=== PATIENT | female | born 1975 | race Caucasian/White ===

== ENCOUNTER 2018-08-13 23:44 | Observation (INO) ==
[2018-08-14] MEDS: NITROGLYCERIN 0.4 MG SL TAB (BOTTLE OF 3) SL PRN ×2 (00:05→00:19)
--- NOTE | 2018-08-14 00:08 | PDOC ---
Chest Pain HPI - General Chief Complaint: Chest Pain Stated Complaint: CHEST PAIN Date Seen by Provider: 08/14/18 Time Seen by Provider: 00:00 Source: Patient Exam Limitations: POSITIVE: No limitations Treatment Prior to Arrival: REPORTS: None Nurse's Notes Reviewed & Considered: Yes - History of Present Illness Initial Comments: The patient is a 43-year-old female who presents to the emergency department with complaints of chest pain. She states that approximately one hour prior to arrival to the ER she was sitting watching TV when she had onset of pain in her left upper chest that radiates to her left shoulder and down her left arm. She has a history of neck problems and initially she thought maybe her neck was aggravated although her current pain does not feel similar to the typical pain s he has associated with her neck. She also describes feeling lightheaded and somewhat short of breath. She also reports having some sweats at home. She states that the pain was more intense at home and has lessened somewhat now that she is here in the emergency department. She still rates her pain however a 5 out of 10. She does not have any known history of heart disease. She has had high blood pressures in the past although she states she does not currently take any medication for blood pressure. She does admit to smoking for 5 cigarettes a day. She does not have any known history of diabetes or hyperlipidemia. She does have family history of heart disease stating that her dad in his 40s from a heart attack. She denies any significant medical history otherwise. She does admit to drinking coffee regularly and she did have some soda earlier tonight. She states that she drank alcohol last night and sometimes puts a shot of hard alcohol in her coffee to help with her neck pain. She admits to smoking marijuana several days ago in [place]. - Patient Home Medications Home Medications: Home Medications oregano oil 1,500 mg capsule 1,500 mg PO PRN 10/10/17 Aspirin [Andres Advanced] 1,000 mg PO PRN 08/13/18 Cetirizine HCl [Zyrtec] 10 mg PO PRN 08/14/18 Sodium Chloride/Sodium Bicarb [Nasa Mist Saline [place]] 1 spray RNOS DAILY 08/14/18 - Patient Allergies Allergies/Adverse Reactions: Allergies Allergy/AdvReac Type Severity Reaction Status Date / Time pencillin Allergy Severe Anaphylaxis Uncoded 08/13/18 23:47 Past Medical History - heen HEENT History: Denies History Cardiovascular History: Denies History Respiratory History: Other (please comment) Additional Respiratory History: SINUS ISSUES Gastrointestinal History: Denies History Genitourinary History: Denies History Endocrine History: Denies History Musculoskeletal History: Other (please comment) Additional Musculoskeletal History: CHRONIC PAIN Neurological History: Denies History Blood Disorders: Denies History Psychiatric History: Anxiety Disorders Cancer History: Denies History In Past Year Been Physically Harmed or Verbally Threatened: No History of MDRO: No Tobacco Use: Current Every Day Smoker Type of alcohol normally used: Hard Liquor In the Past 12 Months, Have Used or Abuse Any Substance: Marijuana Previous Surgical History: Yes Type / Date of Surgery: CHEST TUBE - LUNG COLLAPSE X2. JAW. LEFT WRIST Significant Family History: Heart disease, Hypertension Past Medical History Reviewed: Reviewed - No Changes ROS - Limitations ROS Limitations: No Limitations Constitution: DENIES: Chills, Fever Cardiovascular: REPORTS: Chest Pain Respiratory: REPORTS: Hurts To Breathe (She does have some slight increased in pain with taking a deep breath), Shortness Of Breath Neurological: DENIES: Headache, Numbness, Weakness Gastrointestinal: REPORTS: Denies GI Symptoms Endocrine: REPORTS: Denies Symptoms Musculoskeletal: DENIES: Calf Pain, Lower Extremity Swelling Eyes: REPORTS: Denies Symptoms ENT: REPORTS: Denies Symptoms Skin: DENIES: Rash Chest Pain PE - General Appearance General Appearance: REPORTS: Alert, Cooperative, Anxious - HEENT HEENT: POSITIVE: Head Inspection Nml, Eyes Inspection Nml, Ears Inspection Nml, Nose Inspection Nml, Pharynx Inspect. Nml - Neck Neck: REPORTS: Normal Inspection - Respiratory Respiratory: REPORTS: No Respiratory Distress, Breath Sounds Normal - Cardiovascular Cardiovascular: REPORTS: Regular Rate and Rhythm, Heart Sounds Normal Peripheral Pulses: Dorsalis-pedis (R): 2+, Dorsalis-pedis (L): 2+ - Abdomen Abdomen: Soft: (All Quadrants), Denies Tenderness: (All Quadrants), No Palpabale Mass: (All Quadrants), No Distention: (All Quadrants) - Skin Skin: REPORTS: Intact, No Rash - Extremities Extremity: Normal ROM: (All Extremities), Normal Inspection: (All Extremities) - Neurological / Psychological Neurological: POSITIVE: Oriented X3, Motor Normal, Sensation Normal Chest Pain Progress - Results Reviewed by me Xrays/CTs/US Reviewed by me: Yes Radiology Findings: Chest x-ray shows normal heart size and normal lung robles CBC and BMP: 08/14/18 00:00 08/14/18 00:00 Lab Results:: Laboratory Results 08/14/18 08/14/18 08/14/18 00:00 00:00 00:00 WBC 7.68 RBC 4.34 Hgb 10.5 L Hct 33.2 L MCV 76.5 L MCH 24.2 L MCHC 31.6 L RDW Std Deviation 44.3 RDW Coeff of Get 16.4 H Plt Count 444 H MPV 10.1 Immature Gran % (Auto) 0.1 Neut % (Auto) 48.3 L Lymph % (Auto) 38.2 Hardy % (Auto) 9.6 Eos % (Auto) 2.5 Baso % (Auto) 1.3 H Immature Gran # (Auto) 0.01 Neut # (Auto) 3.71 Lymph # (Auto) 2.93 Hardy # (Auto) 0.74 Eos # (Auto) 0.19 Baso # (Auto) 0.10 WBC Morphology Comment Normal morphology Plt Morphology Comment Normal morphology RBC Morph Comment Normal morphology D-Dimer 0.29 Sodium 139 Potassium 3.7 L Chloride 104 Carbon Dioxide 21 L Anion Gap 14 BUN 27 H Creatinine 0.8 Estimated GFR > 60 BUN/Creatinine Ratio 33.75 H Glucose 101 Calculated Osmolality 292.0 Calcium 9.9 Magnesium 1.9 Total Bilirubin 0.4 AST 29 ALT 23 Alkaline Phosphatase 62 CK-MB (CK-2) Troponin I C-Reactive Protein 0.5 Total Protein 7.3 Albumin 4.7 Globulin 2.6 Albumin/Globulin Ratio 1.80 Amylase 65 Lipase 95 TSH Ur Collection Type Urine Color Urine Clarity Urine pH Ur Specific [place] U Specif Grav (Refrac) Urine Protein Urine Glucose (UA) Urine Ketones Urine Occult Blood Urine Nitrate Urine Bilirubin Urine Urobilinogen Ur Leukocyte Esterase Serum Alcohol 08/14/18 08/14/18 08/14/18 00:00 00:00 00:00 WBC RBC Hgb Hct MCV MCH MCHC RDW Std Deviation RDW Coeff of Get Plt Count MPV Immature Gran % (Auto) Neut % (Auto) Lymph % (Auto) Hardy % (Auto) Eos % (Auto) Baso % (Auto) Immature Gran # (Auto) Neut # (Auto) Lymph # (Auto) Hardy # (Auto) Eos # (Auto) Baso # (Auto) WBC Morphology Comment Plt Morphology Comment RBC Morph Comment D-Dimer Sodium Potassium Chloride Carbon Dioxide Anion Gap BUN Creatinine Estimated GFR BUN/Creatinine Ratio Glucose Calculated Osmolality Calcium Magnesium Total Bilirubin AST ALT Alkaline Phosphatase CK-MB (CK-2) 0.98 Troponin I 0.013 C-Reactive Protein Total Protein Albumin Globulin Albumin/Globulin Ratio Amylase Lipase TSH 2.87 Ur Collection Type Urine Color Urine Clarity Urine pH Ur Specific [place] U Specif Grav (Refrac) Urine Protein Urine Glucose (UA) Urine Ketones Urine Occult Blood Urine Nitrate Urine Bilirubin Urine Urobilinogen Ur Leukocyte Esterase Serum Alcohol < 10 08/14/18 08/14/18 00:48 00:48 WBC RBC Hgb Hct MCV MCH MCHC RDW Std Deviation RDW Coeff of Get Plt Count MPV Immature Gran % (Auto) Neut % (Auto) Lymph % (Auto) Hardy % (Auto) Eos % (Auto) Baso % (Auto) Immature Gran # (Auto) Neut # (Auto) Lymph # (Auto) Hardy # (Auto) Eos # (Auto) Baso # (Auto) WBC Morphology Comment Plt Morphology Comment RBC Morph Comment D-Dimer Sodium Potassium Chloride Carbon Dioxide Anion Gap BUN Creatinine Estimated GFR BUN/Creatinine Ratio Glucose Calculated Osmolality Calcium Magnesium Total Bilirubin AST ALT Alkaline Phosphatase CK-MB (CK-2) Troponin I C-Reactive Protein Total Protein Albumin Globulin Albumin/Globulin Ratio Amylase Lipase TSH Ur Collection Type Clean catch urine Urine Color Yellow Urine Clarity Clear Urine pH 5.5 Ur Specific [place] 1.015 U Specif Grav (Refrac) 1.015 Urine Protein Trace Urine Glucose (UA) Negative Urine Ketones 15 Urine Occult Blood Trace-intact H Urine Nitrate Negative Urine Bilirubin Negative Urine Urobilinogen 0.2 Ur Leukocyte Esterase Negative Serum Alcohol EKG Interpreted/Reviewed By Me:: Yes EKG Interpretation:: POSITIVE: Normal Sinus Rhythm, Normal Rate, Normal QRS, Oth er (No obvious ST segment elevation or depression, she does have T-wave inversion in V2, no previous EKGs for comparison) - Patient's Progress MDM / ED Course: The patient had already taken aspirin at home and therefore no further aspirin was given here in the emergency department. Her blood pressure was significantly elevated at 218/130 on arrival. Her blood pressure remained 208/119 on recheck. Her EKG done shortly after arrival shows normal sinus rh ythm with no acute ST segment changes, T-wave inversion in V2 with no previous EKGs available for comparison. She was given sublingual nitroglycerin. After administration of sublingual nitroglycerin her pain came down slightly to approximately 3 out of 10. Blood pressure came down into the 170s over 90s. Her chest x-ray shows normal heart size and normal lung robles. Her blood work reveals a normal troponin, normal d-dimer, unremarkable blood work otherwise with the exception of mild microcytic anemia. The patient does have multiple risk factors for coronary artery disease including family history, smoking and hypertension. Decision was made to admit the patient for further cardiac mo nitoring and workup. In addition her blood pressure was significantly elevated on arrival and will likely need treatment as well. I did discuss these findings and recommendations with the patient and she is in agreement with this plan. Dr. Bingham has agreed to admit the patient. - Consult Counseled: POSITIVE: Patient, Family, RE: Lab Results, RE: Radiology Results, RE: DX, RE: Need for F/U Patient Care Time - Estimated PCT Patient Care Time (In Minutes): 30 Vital Signs - Recent Vital Signs Vital Signs: Vital Signs (Last 8 hours) Temp Pulse Pulse Resp BP BP Pulse Ox 08/14/18 00:30 68 195/24 96 08/14/18 00:15 77 100 08/14/18 00:01 97.8 F 80 24 220/130 99 08/14/18 00:00 75 17 208/119 100 08/13/18 23:59 78 15 208/119 100 - VS Reviewed Vital Signs Reviewed: Yes Discharge Clinical Impression: Chest pain, Hypertension Discharge Disposition: Admit to Observation Condition: Fair Follow Up With: TURNER GUZMAN [Primary Care Provider] -
[2018-08-14 00:11] LABS: BASOPHILS % (AUTO) 1.3 % (0-1); EOSINOPHILS # (AUTO) 0.19 10*3/UL; EOSINOPHILS % (AUTO) 2.5 % (0-8); Hematocrit [HCT] 33.2 % (37.0-47.0); Hemoglobin [HGB] 10.5 g/dL (12.0-16.0); LYMPHOCYTES # (AUTO) 2.93 10*3/uL; MEAN CORPUSCULAR HEMOGLOBIN 24.2 PG (27-31); MEAN CORPUSCULAR HGB CONC 31.6 g/dL (33-37); MEAN CORPUSCULAR VOLUME 76.5 FL (81-99); MEAN PLATELET VOLUME 10.1 FL (7.4-12.2); MONOCYTES # (AUTO) 0.74 10*3/UL (0.3-0.8); MONOCYTES % (AUTO) 9.6 % (5-15); NEUTROPHILS # (AUTO) 3.71 10*3/UL; NEUTROPHILS % (AUTO) 48.3 % (50-80); PLATELET MORPHOLOGY COMMENT NORMAL MORPHOLOGY (NORM); RBC MORPHOLOGY COMMENT NORMAL MORPHOLOGY (NORM); RED BLOOD COUNT 4.34 10^6/uL (4.20-5.40); WBC MORPHOLOGY COMMENT NORMAL MORPHOLOGY (NORM)
[2018-08-14 00:16] LABS: BLOOD UREA NITROGEN 27 mg/dL (7-22); BUN/CREATININE RATIO 33.75 (6-20); LIPASE 95 IU/L (23-300); SERUM ALBUMIN 4.7 g/dL (3.5-4.8)
[2018-08-14 00:47] LABS: BILIRUBIN,URINE NEGATIVE (NEG); CLARITY,URINE CLEAR (CLEAR); COLOR,URINE YELLOW (Y); GLUCOSE, URINE (UA) NEGATIVE (NEG); OCCULT BLOOD,URINE Trace-intact (NEG); PH,URINE 5.5 (5.0-8.5); PROTEIN,URINE TRACE mg/dl (NEG); UROBILINOGEN,URINE 0.2 EU/dL (0.2)
[2018-08-14 00:48] LABS: URINE SAMPLE TYPE CLEAN CATCH URINE; URINE SPECIFIC GRAVITY - MAN 1.015
[2018-08-14 00:52] LABS: BACTERIA,URINE RARE; RBC,URINE 0-1 /hpf; SQUAMOUS EPITHELIAL CELL,UR RARE; URINE SAMPLE TYPE CLEAN CATCH URINE
[2018-08-14 00:56] LABS: AMPHETAMINE SCREEN NEGATIVE (NEG); CANNABINOID SCREEN,URINE POSITIVE (NEG); METHADONE URINE SCREEN NEGATIVE (NEG); METHAMPHETAMINES SCREEN,URINE NEGATIVE (NEG); OPIATE SCREEN,URINE NEGATIVE (NEG)
[2018-08-14 00:57] LABS: COCAINE SCREEN NEGATIVE (NEG)
[2018-08-14] MEDS ORDERED: CALCIUM CARBONATE 500 MG (TUMS) CHEWABLE TABLET PO PRN (01:03)
[2018-08-14] MEDS ORDERED: LIDOCAINE W/ SODIUM BICARB 0.5 ML SYR SUBD PRN (01:03)
[2018-08-14] MEDS ORDERED: NITROGLYCERIN 0.4 MG SL TAB (BOTTLE OF 3) SL PRN ×2 (01:03)
[2018-08-14] MEDS ORDERED: LISINOPRIL 10 MG TABLET PO ONE (01:03)
[2018-08-14] MEDS ORDERED: LORATADINE 10 MG TABLET PO PRN ×2 (01:09→09:00)
[2018-08-14] MEDS ORDERED: HEPARIN 5000 UNIT/1 ML SUBCUT SCH ×2 (01:45→06:00)
[2018-08-14] MEDS: POTASSIUM CHLORIDE 20 MEQ TAB PO SCH ×2 (01:59→08:40)
[2018-08-14 04:50] VITALS: O2SAT 97
[2018-08-14] MEDS ORDERED: Heparin Drip 25,000 UNIT/500 ML BAG IV SCH (06:45)
[2018-08-14] MEDS ORDERED: Heparin Drip 25,000 UNIT/500 ML BAG IV ONE (06:45)
--- NOTE | 2018-08-14 06:51 | EKG ---
[address] [address] Measurements Intervals [place] Rate: 68 P: 78 MS: 176 QRS: 80 QRSD: 85 T: 80 QT: 419 QTc: 435 Interpretive Statements SINUS RHYTHM Compared to ECG 08/13/2018 23:53:22 No significant changes Electronically Signed On 08-14-18 16:06:29 MST by Supa Hemphill [email or web address]
--- NOTE | 2018-08-14 06:57 | PDOC ---
HPI - History of Present Illness History of Present Illness: This very nice 43-year-old female, patient presented to the ER with chest pain that started 1 hour before her presentation the ER while she was watching TV ra diated to the left shoulder and left arm does have a history of neck pain and initially she thought this was an exacerbation of her neck pain. Pain did improve in the ER with the sublingual nitros also was found to have high blood pressure. Patient does not take any medication for blood pressure she is a smoker of about 5 cigarettes a day of a family history of heart disease her father in the 40s from a heart attack. She also admits to smoking marijuana daily cigar in [place] and at times she puts her in her coffee to help her sleep because of her neck pain patient was admitted for observation initial EKG no acute changes and troponin was negative patient was treated for blood pressure with lisinopril 20 and Norvasc 10 mg pressure in the ER 208 119 L by ER physician came down slowly to the 170s and down to in the 150 range over 79 no tachycardia patient ,had no complaints of chest pain second troponin was elevated at 3.3 and repeat EKG was done no acute changes compared to previous EKG I called the referral Center they connected me to the physician lead python developer which was Dr. Davis I have presented the case to him I also examined the second EKG he said the this was not a STEMI. He recommended Plavix 600, metoprolol 25, and Lipitor 81 cup of the Lasix drip I then spoke to Dr. Banda in the emergency room presented the case to him I told him she will be probably better for the patient to transfer to the ER in case this evolves Past Medical History Tobacco Use: Current Every Day Smoker Do you dip or chew tobacco: No In the Past 12 Months, Have Used or Abuse Any of the Following Substance: Marijuana Medication / Allergies Home Medications: Home Medications Medication Instructions Recorded Confirmed Type oregano oil 1,500 mg capsule 1,500 mg PO PRN 10/10/17 08/14/18 History Aspirin [Andres Advanced] 1,000 mg PO PRN 08/13/18 08/14/18 History Cetirizine HCl [Zyrtec] 10 mg PO PRN 08/14/18 08/14/18 History Sodium Chloride/Sodium Bicarb 1 spray RNOS DAILY 08/14/18 08/14/18 History [Nasa Mist Saline [place]] Allergies/Adverse Reactions: Allergies Allergy/AdvReac Type Severity Reaction Status Date / Time pencillin Allergy Severe Anaphylaxis Uncoded 08/13/18 23:47 Review of Systems - Review of Systems All Systems: Reviewed & No Additional Complaints Except as Stated - Respiratory Respiratory: DENIES: Negative System Review, Cough, Sputum, Dyspnea At Rest, Dyspnea with Exertion, Pleuritic Pain, Hemoptysis, Wheezing, Other, See HPI - Cardiovascular Cardiovascular: REPORTS: Chest Pain. DENIES: Edema, Syncope, Palpitations - Gastrointestinal Gastrointestinal / Abdominal: DENIES: Negative System Review, Nausea, Vomiting, Diarrhea, Constipation, Abdominal Pain, Bloody Stool, Poor Appetite, Heartburn, Regurgitation, Bloating, Lactose Intolerance, Melena, Bright Red Blood per Rectum, Other, See HPI Exam - Vitals Vital Signs: Vital Signs Temperature 97.8 F Temperature Source Temporal Artery Scan Pulse Rate [Pulse Oximeter] 69 Pulse Rate 76 Respiratory Rate 18 Blood Pressure [Left Arm] 159/85 Blood Pressure 159/101 Pulse Ox 97 Oxygen Delivery Method Room Air Height 5 ft 4 in Weight 129 lb 9.6 oz - General General Appearance: No Acute Distress, Cooperative - Respiratory Respiratory Exam: POSITIVE: Clear to Auscultation - Bilaterally, Breathing Non Labored, Normal To Percussion, Normal to Percussion and Palpation - Cardiovascular Cardiovascular Exam: POSITIVE: RRR, No Murmur, No Clicks, No Gallops, No Rubs, PMI Non-Displaced - GI/Abdominal GI/Abdominal Exam: POSITIVE: Normal Bowel Sounds, Non Tender, Non Distended, Soft, No Masses, No Hepatomegaly, No Splenomegaly, No Organomegaly - Extremities Extremities Exam: POSITIVE: No Clubbing Present, No Edema Present, No Cyanosis Present Results - Labs CBC and BMP: 08/14/18 00:00 08/14/18 00:00 Assessment and Plan - Patient Problems (1) Chest pain Current Visit: Yes Status: Acute Code(s): R07.9 - Chest pain, unspecified (2) Hypertension Current Visit: Yes Status: Acute Code(s): I10 - Essential (primary) hypertension (3) Non-STEMI (non-ST elevated myocardial infarction) Current Visit: Yes Status: Acute Code(s): I21.4 - Non-ST elevation (NSTEMI) myocardial infarction
[2018-08-14] MEDS ORDERED: POTASSIUM CHLORIDE 20 MEQ TAB PO SCH (07:00)
[2018-08-14 07:06] VITALS: BP 150/83; RESP 20; TEMP 98
[2018-08-14] MEDS ORDERED: METOPROLOL SUCCINATE 25 MG SR 24H TABLET PO ONE (07:19)
[2018-08-14] MEDS ORDERED: CLOPIDOGREL BISULFATE 300 MG TABLET PO ONE (07:19)
[2018-08-14] MEDS ORDERED: ATORVASTATIN 40 MG TABLET PO ONE (07:20)
[2018-08-14] MEDS ORDERED: SODIUM CHLORIDE 44 ML SPRAY ENOS ONE (08:02)
--- NOTE | 2018-08-14 08:06 | DI ---
XR CXR 1VW,08/14/2018 12:01 AM: Clinical History: Chest pain Previous Exam: None at this facility. Findings: A single frontal radiograph of the chest is obtained, and demonstrate clear lungs. The cardiomediasti num and bony thorax are unremarkable. Overlying EKG leads are seen. Impression: No acute cardiopulmonary disease.
--- NOTE | 2018-08-14 08:09 | DCSUMMARY ---
Hospitalization Summary Hospital Course: Final Discharge Diagnosis: Current Visit Problems Problem Status Onset Code Chest pain Acute R07.9 Hypertension Acute I10 Non-STEMI (non-ST elevated myocardial infarction) Acute I21.4 Diagnostic Data, Laboratory Data, and Procedures of Signifigance: Abnormal Lab Results (Last 24 Hours) Range/Units 08/14/18 08/14/18 08/14/18 00:00 00:00 00:48 Hgb (12.0-16.0) g/dL 10.5 L Hct (37.0-47.0) % 33.2 L MCV (81-99) FL 76.5 L MCH (27-31) PG 24.2 L MCHC (33-37) g/dL 31.6 L RDW Coeff of Get (11.5-14.5) % 16.4 H Plt Count (140-350) 10*3/uL 444 H Neut % (Auto) (50-80) % 48.3 L Baso % (Auto) (0-1) % 1.3 H Potassium (3.8-5.2) meq/L 3.7 L Carbon Dioxide (23-33) meq/L 21 L BUN (7-22) mg/dL 27 H BUN/Creatinine Ratio (6-20) 33.75 H Troponin I (< 0.040) ng/mL Urine Occult Blood (NEG) U Marijuana (THC) Screen (NEG) Positive H Range/Units 08/14/18 08/14/18 00:48 05:58 Hgb (12.0-16.0) g/dL Hct (37.0-47.0) % MCV (81-99) FL MCH (27-31) PG MCHC (33-37) g/dL RDW Coeff of Get (11.5-14.5) % Plt Count (140-350) 10*3/uL Neut % (Auto) (50-80) % Baso % (Auto) (0-1) % Potassium (3.8-5.2) meq/L Carbon Dioxide (23-33) meq/L BUN (7-22) mg/dL BUN/Creatinine Ratio (6-20) Troponin I (< 0.040) ng/mL 3.320 H* Urine Occult Blood (NEG) Trace-intact H U Marijuana (THC) Screen (NEG) History and Physical pertinent to Admission: Course of Hospitalization: This very nice 43-year-old female please see my H&P. In short patient was at home watching TV with chest pain decided to be seen in the ER which was found to have high blood pressure was treated with sublingual nitroglycerin chest pain resolved. An initial lab work and EKG was negative including troponin second troponin elevated at 3.320. Patient is without chest pain secondary EKG no real acute changes discussed the case Dr. Davis and Dr. Banda who graciously accepted the patient at [facility]. I discussed this whole case with the patient herself she is in agreement with the transfer. Patient received the Norvasc, lisinopril, Lipitor 80, metoprolol 25 mg, Plavix 600, heparin drip. Risk factors for this patient is family history dad of at 40 years old of an [place], occasional alcohol, daily smoker of 5 cigarettes a day On the date of discharge, the patient was examined: Gen.: No acute distress, alert, nontoxic Heart: Regular rate and rhythm, no murmurs, clicks, gallops, or rubs Lungs: Clear to auscultation bilaterally, breathing is nonlabored Abdomen/GI: Normal tones on auscultation, soft, nontender, nondistended Musculoskeletal/extremities: No clubbing, cyanosis, or edema Vitals reviewed and are listed below Vital Signs (24 hrs) 08/13/18 23:59 08/14/18 00:00 08/14/18 00:01 Temperature 98.1 F Pulse Rate 78 75 Pulse Rate Pulse Oximeter 73 Respiratory Rate 15 17 20 Blood Pressure 208/119 208/119 Blood Pressure Left Arm 167/91 Pulse Ox 100 100 98 08/14/18 00:15 08/14/18 00:30 08/14/18 00:57 Temperature 97.8 F Pulse Rate 77 68 70 Pulse Rate Pulse Oximeter Respiratory Rate 18 Blood Pressure 195/24 159/101 Blood Pressure Left Arm Pulse Ox 100 96 96 08/14/18 01:05 08/14/18 03:00 08/14/18 04:49 Temperature 97.8 F Pulse Rate 76 Pulse Rate Pulse Oximeter 69 69 Respiratory Rate 18 18 Blood Pressure Blood Pressure Left Arm 159/85 Pulse Ox 98 97 08/14/18 06:56 08/14/18 07:00 08/14/18 07:05 Temperature 98 F Pulse Rate 69 Pulse Rate Pulse Oximeter 73 97 Respiratory Rate 20 Blood Pressure Blood Pressure Left Arm 150/83 Pulse Ox 97 Assessment and Plan: 1. As per discharge assessments above 2. Disposition: Transferred to [facility] 3. Condition on discharge, stable and improved. 4. Diet: Nothing by mouth 5. Activities: resume normal activities 6. Follow-Up: 1. PCP 2. Accepted by Dr. Davis and Dr. Banda 7. Medications at the Time of Discharge: Active Medications Generic Name Dose Route Start Last Admin Trade Name Freq PRN Reason Stop Dose Admin Amlodipine Besylate 10 mg 08/14/18 01:03 08/14/18 01:59 Norvasc PO 10 mg DAILY ABBIE Administration Aspirin 81 mg 08/15/18 09:00 Aspirin Chewable Tab PO DAILY [facility] Calcium Carbonate 1 - 2 tab 08/14/18 01:03 Tums PO QID PRN Heartburn Heparin Sodium (Porcine) 5,000 unit 08/14/18 01:45 08/14/18 02:23 Heparin Inj SUBCUT Not Given Q8H [facility] Sodium Chloride 25 mls @ 200 mls/hr 08/14/18 01:03 Normal Saline 0.9% IV .Post Infusion PRN Flush Heparin Sodium/Dextrose 25,000 unit in 500 mls @ 14.109 mls/hr 08/14/18 06:45 08/14/18 06:45 Heparin (Premix) IV 12 unit/kg/hr .Per Protocol ABBIE 14.109 mls/hr Administration Protocol 12 UNIT/KG/HR Lidocaine HCl 0.5 ml 08/14/18 01:03 Lidocaine Buffered Inj SUBD ONCE PRN IV Starts Loratadine 10 mg 08/14/18 01:09 Claritin PO DAILY PRN Allergies Nitroglycerin 1 tab 08/14/18 01:03 08/14/18 08:04 Nitrostat Sl 0.4mg Tab SL 1 tab Q5M PRN Administration Chest Pain Potassium Chloride 40 meq 08/14/18 01:15 08/14/18 01:59 Klor-Con PO 40 meq BID ABBIE Administration Sodium Chloride 2 spray 08/14/18 08:02 [place] Nasal [place] 0.65% EUNICE 08/14/18 08:03 ONCE ONE 8. Time, care, counseling and coordination of care for this discharge is greater than 30 minutes. Exam - Vitals Vital Signs: Vital Signs Temperature 98 F Temperature Source Temporal Artery Scan Pulse Rate [Pulse Oximeter] 97 Pulse Rate 69 Respiratory Rate 20 Blood Pressure [Left Arm] 150/83 Blood Pressure 159/101 Pulse Ox 97 Oxygen Delivery Method Room Air Height 5 ft 4 in Weight 129 lb 9.6 oz Patient Problems - Patient Problem List (1) Chest pain Current Visit: Yes Status: Acute Code(s): R07.9 - Chest pain, unspecified Category: Medical (2) Hypertension Current Visit: Yes Status: Acute Code(s): I10 - Essential (primary) hypertension Category: Medical (3) Non-STEMI (non-ST elevated myocardial infarction) Current Visit: Yes Status: Acute Code(s): I21.4 - Non-ST elevation (NSTEMI) myocardial infarction Category: Medical
[2018-08-15] MEDS ORDERED: ASPIRIN 81 MG (BABY) CHEWABLE TABLET PO SCH (09:00)
== END 2018-08-14 08:55 | disposition short-term general hospital (02) ==
LOC: ER 23:44 → MED/SURG 23:44
PROVIDERS: ADMIT Internal Medicine; ATTEND Internal Medicine